=== PATIENT | male | born 1995 | race Caucasian/White ===

== ENCOUNTER 2017-02-27 11:02 | Emergency (ER) | payer MEDICAID, OTHER ==
[2017-02-27] MEDS ORDERED: Lidocaine 1% 30 ML SDV INJECT ONE (11:18)
[2017-02-27] MEDS ORDERED: Bacitracin Oint 1 GM U/D Packet TOP ONE (11:18)
[2017-02-27] MEDS ORDERED: Diphtheria,Pertussis(Acell),Tetanus Vaccine 0.5 ML SDV IM ONE (11:32)
--- NOTE | 2017-02-27 12:04 | EDM.PDOC ---
[id number] 4d IN WITH PD Time Seen by Provider: 02/27/17 11:20 Source of Information: Reports: Patient History Limitations: Reports: No Limitations - History of Present Illness INITIAL COMMENTS - FREE TEXT/NARRATIVE: This 21 yo male patient was brought to the ED by [facility] due to a laceration to his right hand. The patient reports he got his hand caught on a nail in the hallway. Bleeding was controlled prior to arrival in the ED. Onset: Today Duration: Hour(s): (1-2), Constant Location: Reports: Upper Extremity, Right Quality: Reports: Ache, Dull Severity: Mild Improves with: Reports: None Worsens with: Reports: None Associated Symptoms: Reports: No Other Symptoms - Related Data Allergies Allergy/AdvReac Type Severity Reaction Status Date / Time Penicillins Allergy Hives Verified 08/25/13 14:33 Home Meds: Home Meds Albuterol [Ventolin HFA] 2 puff INH Q4H PRN 08/29/13 [History] Past Medical History - Past Health History Medical/Surgical History: Denies Medical/Surgical History Social & Family History - Tobacco Use Smoking Status *Q: Never Smoker Second Hand Smoke Exposure: Yes - Recreational Drug Use Recreational Drug Use: No ED ROS GENERAL - Review of Systems Review Of Systems: ROS reveals no pertinent complaints other than HPI. ED EXAM, SKIN/RASH Exam: See Below Exam Limited By: No Limitations General Appearance: Alert, WD/WN, No Apparent Distress Eye Exam: Bilateral Eye: EOMI, Normal Inspection, PERRL Ears: Normal External Exam, Normal Canal, Hearing Grossly Normal, Normal TMs Nose: Normal Inspection, Normal Mucosa, No Blood Throat/Mouth: Normal Inspection, Normal Lips, Normal Teeth, Normal Gums, Normal Oropharynx, Normal Voice, No Airway Compromise Head: Atraumatic, Normocephalic Neck: Normal Inspection, Supple, Non-Tender, Full Range of Motion Respiratory/Chest: No Respiratory Distress, Lungs Clear, Normal Breath Sounds, No Accessory Muscle Use, Chest Non-Tender Cardiovascular: Normal Peripheral Pulses, Regular Rate, Rhythm, No Edema, No Gallop, No JVD, No Murmur, No Rub GI/Abdominal: Normal Bowel Sounds, Soft, Non-Tender, No Organomegaly, No Distention, No Abnormal Bruit, No Mass (Male) Exam: Deferred Rectal (Males) Exam: Deferred Back Exam: Normal Inspection, Full Range of Motion, NT Extremities: Normal Inspection, Normal Range of Motion, Non-Tender, No Pedal Edema, Normal Capillary Refill Neurological: Alert, Oriented, CN II-XII Intact, Normal Cognition, Normal Gait, Normal Reflexes, No Motor/Sensory Deficits Psychiatric: Normal Affect, Normal Mood Skin: Warm, Dry, Normal Color, No Rash Location, Skin: Upper Extremity, Right Characteristics: Linear Lymphatic: No Adenopathy ED SKIN PROCEDURES - Laceration/Wound Repair Right Hand Lac/Wound length In cm: 2.0 Appearance: Subcutaneous Anesthetic Type: Local Local Anesthesia - Lidocaine (Xylocaine): 1% Plain Local Anesthetic Volume: 4cc Skin Prep: Chlorhexidine (Hibiciens), Saline Exploration/Debridement/Repair: Wound Explored, in a Bloodless Field, Explored to Base, No Foreign Material Found, Multiple Flaps Aligned Closed with: Sutures Suture Size: 4-0 # of Sutures: 7 Suture Type: Prolene, Interrupted, Simple Drain Placement: No Sterile Dressing Applied: Nurse Tetanus Status Addressed: Yes Complications: No Course - Vital Signs Last Recorded V/S: Last Vital Signs Temp 36.3 C 02/27/17 11:18 Pulse 112 H 02/27/17 11:18 Resp 16 02/27/17 11:18 BP 127/86 02/27/17 11:18 Pulse Ox 98 02/27/17 11:18 - Orders/Labs/Meds Meds: Medications Discontinued Medications Generic Name Dose Route Start Last Admin Trade Name Vicenteq PRN Reason Stop Dose Admin Bacitracin 1 dose 02/27/17 11:18 02/27/17 11:22 Bacitracin Oint 1 Gm TOP 02/27/17 11:19 1 dose ONETIME ONE Administration Diphtheria/Tetanus/Acell Pertussis 0.5 ml 02/27/17 11:32 02/27/17 11:40 Adacel IM 02/27/17 11:33 0.5 ml .ONCE ONE Administration Lidocaine HCl 30 ml 02/27/17 11:18 02/27/17 11:23 Xylocaine-Mpf 1% INJECT 02/27/17 11:19 30 ml ONETIME ONE Administration Departure - Departure Time of Disposition: 12:02 Disposition: Home, Self-Care 01 Condition: Fair Clinical Impression: Laceration of right hand Qualifiers: Encounter type: initial encounter Foreign body presence: without foreign body Qualified Code(s): S61.411A - Laceration without foreign body of right hand, initial encounter - Discharge Information Instructions: Laceration Care, Adult, [id number] Referrals: PCP,None [Primary Care Provider] - Forms: ED Department Discharge Care Plan Goals: The patient was advised of the examination results during the visit. The wound margins were well approximated during the visit. The patient was encouraged to keep the area clean and dry over the next 24 hours. The patient should have the sutures removed in about 14 days. If the patient has any additional symptoms or concerns, the patient should follow-up with his primary care facility or return to the emergency department.
[2017-02-27 12:23] VITALS: BP 127/86
== END 2017-02-27 12:15 | disposition home or self-care (01) ==
LOC: DL.ED 11:02
DX: S61.411A Laceration without foreign body of right hand, initial encounter (principal); Z23 Encounter for immunization; Z88.0 Allergy status to penicillin; W45.0XXA Nail entering through skin, initial encounter
CPT/HCPCS: 12001; 90471; 90715; 96372; 99282; 99283